=== PATIENT | female | born 1980 | race Two or more races ===

== ENCOUNTER → 2023-10-19 | Outpatient (CLI) | payer OTHER | END | disposition home or self-care (01) | LOC: XYW 08:38 | PROVIDERS: ATTEND Personal Emergency Response Attendant | DX: N20.0 Calculus of kidney (principal); N20.1 Calculus of ureter; K80.20 Calculus of gallbladder without cholecystitis without obstruction | CPT/HCPCS: 74176 ==

== ENCOUNTER → 2023-12-03 | Outpatient (CLI) | payer OTHER | END | disposition home or self-care (01) | LOC: XYW 08:58 | PROVIDERS: ATTEND Personal Emergency Response Attendant | DX: N20.0 Calculus of kidney (principal); N21.0 Calculus in bladder | CPT/HCPCS: 74176 ==

== ENCOUNTER 2024-03-28 02:25 | Inpatient (IN) | payer OTHER ==
[~2024-03-28] VITALS: Ht 167.6 cm; Wt 65.8 kg
[2024-03-28 04:16] LABS: Basophils # (auto) 0 10 ^3/uL (0-0.2); Basophils % (auto) 0.6 % (0.0-2.0); Eosinophils # (auto) 0.5 10 ^3/uL (0-0.8); Eosinophils % (auto) 6.9 % (0.0-7.0); Hematocrit 31.9 % (36.0-46.0); Hemoglobin 10.9 g/dL (12.2-16.2); Lymphocytes # (auto) 2.3 10 ^3/uL (0.4-5.4); Lymphocytes % (auto) 34.6 % (10.0-50.0); Mean Corpuscular Hemoglobin 29.6 pg (28.0-32.0); Monocytes # (auto) 0.5 10 ^3/uL (0-1.3); Monocytes % (auto) 8.1 % (0.0-12.0); Neutrophils # (auto) 3.3 10 ^3/uL (1.6-8.6); Neutrophils % (auto) 49.8 % (37.0-80.0); Platelet Count (auto) 295 10^3/uL (140-450); Red Blood Cells 3.67 10^6/uL (4.0-5.20); Red Cell Distribution Width 14.2 % (11.8-14.3); White Blood Cell 6.6 10^3/uL (4.4-10.8)
[2024-03-28 04:29] LABS: Chloride 107 mmol/L (98-107); Potassium 3.5 mmol/L (3.5-5.1); Sodium 141 mmol/L (136-145)
[2024-03-28 04:30] LABS: Anion Gap 8 (5-15); Calcium 9.4 mg/dL (8.7-10.4); Carbon Dioxide 26 mmol/L (20-31)
[2024-03-28 04:35] LABS: BUN/Creatinine Ratio 12.9 (10.0-20.0); Blood Urea Nitrogen 9 mg/dL (9-23); Glucose 94 mg/dL (74-106)
[2024-03-28] MEDS ORDERED: ONDANSETRON HCL 4 MG/2 ML VIAL IV PRN (07:00)
[2024-03-28] MEDS: D5W/SOD CHL 0.45% 1,000 ML IV SCH (08:40)
[2024-03-28 09:17] VITALS: BP 126/67; PULSE 63; RESP 18; TEMP 97.8; O2SAT 98
[2024-03-28 09:45] VITALS: BP 126/67; PULSE 63; PULSE 76; RESP 18; RESP 20; TEMP 97.8; O2SAT 98
[2024-03-28] MEDS: ENOXAPARIN SOD 40 MG/0.4 ML SYRINGE SC SCH (10:00)
[2024-03-28] MEDS: levoFLOXacin 500MG 100 ML IV ONE (13:13)
[2024-03-28] MEDS ORDERED: MEPERIDINE HCL (50 MG/ML) 1 ML VIAL ONE (15:05)
[2024-03-28] MEDS ORDERED: MIDAZOLAM HCL 2MG/2ML 2ml VIAL (1mg/ml) ONE (15:05)
[2024-03-28] MEDS ORDERED: fentaNYL CITRATE 100 MCG/2 ML VL ONE (15:05)
[2024-03-28] MEDS ORDERED: DexAMETHasone SOD PHOS 10MG/1ML VIAL INJ ONE (15:06)
[2024-03-28] MEDS ORDERED: PROPOFOL 10 MG/ML 20 ML IV ONE (15:06)
[2024-03-28] MEDS: KETOROLAC TROMETH 30 MG/ML 1ML VIAL IV ONE (15:45)
[2024-03-28] MEDS: ONDANSETRON HCL 4 MG/2 ML VIAL IV ONE (15:45)
[2024-03-28] MEDS ORDERED: HYDROmorphone HCL 2 MG/ML VL/or syr IV PRN (15:45)
[2024-03-28] MEDS ORDERED: hydrALAZINE HCL 20 MG/ML VL IV PRN (15:45)
[2024-03-28] MEDS ORDERED: ePHEDrine SULFATE 50 MG/ML AMP IV PRN (15:45)
[2024-03-28] MEDS ORDERED: MIDAZOLAM HCL 2MG/2ML 2ml VIAL (1mg/ml) IV PRN (15:45)
[2024-03-28] MEDS ORDERED: MORPHINE SULFATE 4 MG/ML SYR/VIAL IV PRN (15:45)
[2024-03-28] MEDS ORDERED: SUGAMMADEX 200mg/2ml Vial (100MG/ML) IV ONE (16:21)
[2024-03-28 16:37] VITALS: O2SAT 100
[2024-03-28] MEDS: MORPHINE SULFATE 4 MG/ML SYR/VIAL IV PRN (16:54)
[2024-03-28 17:45] VITALS: BP 106/76; PULSE 48; RESP 18; TEMP 97.6; O2SAT 95
[2024-03-28 19:16] LABS: INR 1.07 (0.9-1.15); Partial Thromboplastin Time 29.3 SEC (24.5-34.5); Prothrombin Time 11.3 sec (9.3-11.8)
[2024-03-28 19:30] VITALS: RESP 16
[2024-03-28 21:00] VITALS: BP 100/62; PULSE 55; RESP 16; TEMP 97.4; O2SAT 97
[2024-03-29] VITALS (9 sets, daily range): BP systolic 90–123; BP diastolic 56–75; PULSE 44–65; RESP 16–20; TEMP 97.5–98.6; O2SAT 94–98
[2024-03-29] MEDS: HYDROcodone-ACET 10/325MG TAB PO PRN (12:36)
[2024-03-30] VITALS (7 sets, daily range): BP systolic 98–108; BP diastolic 54–95; PULSE 51–63; RESP 16–20; TEMP 98–98.7; O2SAT 94–100
[2024-03-30 06:14] LABS: Basophils # (auto) 0.1 10 ^3/uL (0-0.2); Basophils % (auto) 0.8 % (0.0-2.0); Eosinophils # (auto) 0.2 10 ^3/uL (0-0.8); Eosinophils % (auto) 2.2 % (0.0-7.0); Hematocrit 29.9 % (36.0-46.0); Lymphocytes # (auto) 2.7 10 ^3/uL (0.4-5.4); Lymphocytes % (auto) 32.3 % (10.0-50.0); Mean Corpuscular Hemoglobin 29.3 pg (28.0-32.0); Mean Corpuscular Hgb Conc. 33.4 g/dL (32.0-36.0); Mean Corpuscular Volume 87.6 fL (80.0-100.0); Monocytes # (auto) 0.6 10 ^3/uL (0-1.3); Monocytes % (auto) 7.7 % (0.0-12.0); Neutrophils # (auto) 4.7 10 ^3/uL (1.6-8.6); Platelet Count (auto) 253 10^3/uL (140-450); Red Blood Cells 3.41 10^6/uL (4.0-5.20); White Blood Cell 8.2 10^3/uL (4.4-10.8)
[2024-03-31] VITALS (7 sets, daily range): BP systolic 102–117; BP diastolic 63–73; PULSE 50–74; RESP 14–19; TEMP 36.9; O2SAT 95–98
[2024-03-31] MEDS ORDERED: ROCURONIUM 10MG/ML 10ML VIAL IV ONE (22:29)
== END 2024-03-31 22:30 | DRG 700 ==
LOC: EEVIPCON 02:25 → ER 02:25 → EDBD 02:25 → OVERFLOW 07:03 → WEST WING 09:17 → CENTRAL 03-31 09:54
PROVIDERS: ADMIT Internal Medicine; ATTEND Internal Medicine
PROC: 0TC38ZZ Extirpation of Matter from Right Kidney Pelvis, Via Natural or Artificial Opening Endoscopic (ICD-10-PCS; principal; 2024-03-28 15:15)
DX: N99.522 Malfunction of incontinent external stoma of urinary tract (principal); N20.0 Calculus of kidney; Y73.2 Prosthetic and other implants, materials and accessory gastroenterology and urology devices associated with adverse incidents; Z87.442 Personal history of urinary calculi
CPT/HCPCS: 36415; 74018; 74176; 80048; 82360; 84702; 85025; 85610; 85730; G0378; J1100; J1956; J2250; J2405; J2704

== ENCOUNTER → 2024-10-31 | Outpatient (CLI) | payer OTHER ==
--- NOTE | 2024-10-31 16:49 | DVH ---
Exam: CT CT AB PEL WO CON-NO ORAL OR IV History: KIDNEY STONES Comparison Study: CT CT AB PEL WO CON-NO ORAL OR IV on DOS: 03/28/24, CT CT AB PEL WO CON-NO ORAL OR I V on DOS: 12/03/23, CT CT AB PEL WO CON-NO ORAL OR IV on DOS: 10/19/23 Technique: Multidetector spiral CT of the abdomen and pelvis was performed from lung bases to pubic symphysis. Imaging was performed without IV contrast. Axial, coronal and sagittal multiplanar reform ats were obtained from the axial data set by the technologist. Radiation dose : Abdomen/Pelvis: CTDIvol 8.34 mGy, DLP 476.43 mGy*cm. Findings: Evaluation of solid organs is limited due to lack of intravenous contrast use. Lung Bases: No acute or significant lung base finding. Normal heart size. No pleural or pericardial effusion. Liver: The liver is normal in size. No focal lesions. Gallbladder and biliary Tree: Cholelithiasis noted without secondary findings of cholecystitis or jessica iary obstruction. Spleen: Unremarkable Pancreas: The pancreas is grossly normal in appearance. Adrenal Glands: Unremarkable Kidneys: Mild left hydronephrosis. Coarse left renal cortical calcifications. Punctate left renal ca lculi. No definite obstructing left ureteral calculus. No right hydronephrosis. Bladder: Grossly unremarkable for degree of distention. Bowel: The stomach is grossly normal in appearance. Small bowel and colon are normal in caliber and d istribution. Normal appendix is visualized in the right lower quadrant without findings of appendicit is. Ascites: Absent Lymphadenopathy: No mesenteric, retroperitoneal or periportal lymphadenopathy. Abdominal wall and Mesentery: Unremarkable. Vasculature: The visualized abdominal aorta is normal in size and caliber. Evaluation of abdominal a nd pelvic vessels is limited due to lack of intravenous contrast. Pelvic Organs: Unremarkable Musculoskeletal: No aggressive focal bony lesions, acute fractures or dislocation. IMPRESSION: 1. No acute abdominal or pelvic findings. Mild left hydronephrosis. Coarse left renal cortical calcif ications. Punctate left renal calculi. No definite obstructing left ureteral calculus identified. Ov erall stone burden appears decreased compared to prior. Cholelithiasis. Radiation optimization: All CT scans at this facility use at least one of these dose optimization rhina hniques: Automated exposure control mA and/or kV adjustment per patient size (includes targeted exams where dose is matched to clinical indication) or iterative reconstruction. HS:Y
== END | disposition home or self-care (01) ==
LOC: CT 09:08
DX: N13.2 Hydronephrosis with renal and ureteral calculous obstruction (principal); K80.20 Calculus of gallbladder without cholecystitis without obstruction
CPT/HCPCS: 74176

== ENCOUNTER → 2024-12-14 | Day surgery (SDC) | payer OTHER ==
[~2024-12-14] VITALS: Ht 165.1 cm; Wt 68.9 kg
[~2024-12-14] MED LIST: DexAMETHasone SOD PHOS 10MG/1ML VIAL INJ ONE; FLUMAZENIL 0.1 MG/ML INJ 10ML MDV IV PRN; GLYCOPYRROLATE 0.2 MG/ML 1ML VIAL ONE; KETAMINE 50mg/ML 1ml syringe ONE; KETOROLAC TROMETH 30 MG/ML 1ML VIAL ONE; LIDOCAINE 2% (LOCAL ANESTH.) PF 5ml SDV ONE; NALOXONE HCL 0.4 MG/ML VIAL IV PRN; ONDANSETRON HCL 4 MG/2 ML VIAL ONE; PROPOFOL 10 MG/ML 20 ML IV ONE; ePHEDrine SULFATE 50 MG/ML AMP IV PRN; fentaNYL CITRATE 100 MCG/2 ML VL IV PRN; hydrALAZINE HCL 20 MG/ML VL IV PRN; oxyCODONE HCL 5MG TAB PO PRN
--- NOTE | 2024-12-14 11:29 | DVHNC2 ---
Procedure - OPERATIVE REPORT Pre-op. Diagnosis: Renal Stone- 6 mm left Post-op. Diagnosis: Same as pre-op diagnosis Operation: Extracorporeal Shockwave Lithotripsy Anesthesia: General Indications: Patient was found to have symptomatic Urolithiasis. Patient is here to undergo ESWL therapy. Informed Consent: The procedure was explained to the patient. It's risks include but not limited to infection, bleeding, and damage to the kidney. Patient fully understood and signed the consent. Other options such as watchful waiting, Ureteroscopy, Percutaneous surgery and open surgery were also discussed. Details of Procedure: Under satisfactory anesthesia, the patient was positioned on the lithotripsy table. Using fluoroscopy the stone was localized. Starting at low energy levels, shockwave treatment was commenced. The energy level was gradually increased and stone was fragmented. Once the treatment was completed, patient was then taken off the lithotripsy table and sent to recovery room in stable condition. Specimens: None Complications: None Findings: Stone Laterality: Left Stone Location: upper/mid 6 mm renal stone Shocks Delivered: 2000 Max Power settin Fragmentation Quality: Well FABY DEJESUS MD Dec 14, 2024 11:29
--- NOTE | 2024-12-14 11:30 | DVHDS2 ---
New Physician D'charge PN Admitting Diagnosis Admitting Diagnosis Left nephrolithiasis Discharge Diagnosis Same Operations or Procedures Left extracorporeal shockwave lithotripsy Reason(s) For Hospitalization Surgery Treatment Plan Discharge Condition of Discharge Good Disposition [facility] Discharge Instructions Diet: Regular Activity: Light activity Activity comment: As tolerated Medications: Given Follow Up Care Follow Up/Referral: Follow up two weeks Discharge Statement: "Patient was advised to return to the ER or call 911 if any headaches, dizziness, shortness of breath, chest pain, abdominal pain, bleeding, fevers, or worsening of medical condition. Patient was counseled about treatment plan, medications, possible side effects, patientverbalized understanding. All questions were answered to the best of my ability. This discharge took greater then 30 minutes in planning, reviewing documentation, counseling the patient, and discussing with other team members." FABY DEJESUS MD Dec 14, 2024 11:30
[2024-12-14 11:45] VITALS: PULSE 52; RESP 13; O2SAT 100
[2024-12-14] MEDS: HYDROmorphone HCL 2 MG/ML VL/or syr IV PRN (12:35)
[2024-12-14] MEDS: ONDANSETRON HCL 4 MG/2 ML VIAL IV PRN (12:37)
[2024-12-14 13:20] VITALS: BP 134/78; PULSE 64; RESP 13; O2SAT 95
== END | disposition home or self-care (01) ==
LOC: ER 07:41 → MED 08:05 → EEVIPCON 08:05
PROVIDERS: ATTEND Urology
DX: N20.0 Calculus of kidney (principal); I10 Essential (primary) hypertension; E66.3 Overweight; Z68.25 Body mass index [BMI] 25.0-25.9, adult; Z79.82 Long term (current) use of aspirin; Z79.899 Other long term (current) drug therapy; Z98.51 Tubal ligation status; Z80.3 Family history of malignant neoplasm of breast
CPT/HCPCS: 50590; J0360; J1100; J1171; J1885; J2003; J2310; J2405; J2704; J3010